=== PATIENT | female | born 1930 | race Caucasian/White ===

== ENCOUNTER → 2016-12-30 | Outpatient (CLI) | payer MEDICARE, OTHER ==
[2015-09-09 15:13] VITALS: BP 142/63
[~2016-12-30] MED LIST: CYAN10005 PO; HYDR-971 PO; LANS30CA17 PO
[2016-12-30 15:00] LABS: BASO # 0.1 x10^3/uL (0.0-0.2); BASO % 1 % (0-3); EOS % 3 % (0-3); HEMOGLOBIN 14.5 g/dL (12.0-15.5); LYMPH # 1.9 x10^3/uL (1.0-4.8); LYMPH % 25 % (24-48); MEAN CORPUSCULAR HEMOGLOBIN 32 pg (25-35); MEAN CORPUSCULAR HGB CONC 33 g/dL (31-37); MEAN CORPUSCULAR VOLUME 98 fL (79-100); MONO % 7 % (0-9); NEUT % 64 % (31-73); PLATELET COUNT 317 x10^3/uL (140-400); RED BLOOD COUNT 4.49 x10^6/uL (3.50-5.40); RED CELL DISTRIBUTION WIDTH 13.6 % (11.5-14.5); WHITE BLOOD COUNT 7.6 x10^3/uL (4.0-11.0)
[2016-12-30 15:03] LABS: CALCIUM 9.3 mg/dL (8.5-10.1); CREATININE 0.9 mg/dL (0.6-1.0); GFR 59.4
== END | disposition home or self-care (01) ==
LOC: SURGPAT 13:35
PROVIDERS: ATTEND Surgery
DX: Z01.812 Encounter for preprocedural laboratory examination (principal)
CPT/HCPCS: 36415; 80048; 83036; 85027

== ENCOUNTER 2017-01-05 08:18 | Inpatient (IN) | payer MEDICARE, OTHER ==
[2017-01-05] VITALS (10 sets, daily range): BP systolic 146–169; BP diastolic 51–75
[~2017-01-05] VITALS: Ht 152.4 cm; Wt 75.0 kg
[~2017-01-05 08:18] MED LIST changes: +BUPIVAC MPF-EPI 0.5%-1:200000 30 ML VIAL. ONE; +CEFAZOLIN 2GM PREMIX 50 ML IV ONE; +DEXAMETHASONE SOD PHOS 20 MG/5 ML VIAL. ONE; +FENTANYL PF 100 MCG/2 ML VIAL. IV PRN; +LIDOCAINE 1% 1 ML SYRINGE. ID PRN; +MIDAZOLAM HCL 2 MG/2 ML VIAL. ONE; +NEOSTIGMINE METHYLSULFATE 5 MG/5 ML SYRINGE. ONE; +ONDANSETRON PF 4 MG/2 ML VIAL. IV PRN; +ONDANSETRON PF 4 MG/2 ML VIAL. ONE; +PROCHLORPERAZINE 10 MG/2 ML VIAL. IV PRN; +PROPOFOL 20 ML IV ONE
[2017-01-05] MEDS ORDERED: FENTANYL PF 250 MCG/5 ML VIAL. ONE (08:19)
[2017-01-05] MEDS ORDERED: GLYCOPYRROLATE 1 MG/5 ML VIAL. ONE (08:19)
[2017-01-05] MEDS ORDERED: ROCURONIUM 100 MG/10 ML VIAL. ONE (08:20)
[2017-01-05] MEDS: IV RINGERS,LACTATED 1000ML 1,000 ML IV SCH ×2 (09:07→12:19)
[2017-01-05] MEDS ORDERED: PHENYLEPHRINE in 0.9% NACL PF 1 MG/10 ML DISP.SYRIN. IV ONE (09:48)
[2017-01-05] MEDS: FENTANYL PF 100 MCG/2 ML VIAL. IV PRN ×4 (11:08→12:47)
[2017-01-05] MEDS ORDERED: HYDROCODONE/APAP 5/325MG TABLET. PO PRN (11:15)
[2017-01-05] MEDS ORDERED: 0.9 % SODIUM CHLORIDE 10 ML DISP.SYRIN. IV PRN (11:15)
[2017-01-05] MEDS ORDERED: DIPHENHYDRAMINE HCL 25 MG CAPSULE PO PRN (11:15)
[2017-01-05] MEDS ORDERED: HYDROMORPHONE 2 MG/ML VIAL. IV PRN (11:15)
--- NOTE | 2017-01-05 11:18 | PDOC ---
BRIEF OPERATIVE NOTE Date: Jan 05, 2017 Pre-Op Diagnosis ventral incisional hernia Post-Op Diagnosis same Procedure Performed repair with mesh Surgeon Apollo ABDI Blood Loss 10cc IV Fluid 700cc Urine Output 50cc Specimens Obtained hernia sack Findings loculated hernia sack with reducible contents Complications none Additional Remarks # [id number] JUAN ANTONIO ALEJANDRA MD Jan 05, 2017 11:18
[2017-01-05] MEDS ORDERED: KETOROLAC 15 MG/ML VIAL. IV ONE (12:00)
--- NOTE | 2017-01-05 12:01 | OP ---
DATE OF SURGERY: 01/05/2017 PREOPERATIVE DIAGNOSIS: Ventral incisional hernia. POSTOPERATIVE DIAGNOSIS: Ventral incisional hernia. PROCEDURE: Repair with mesh. SURGEON: Mert Alejandra M.D. ANESTHESIA: General endotracheal. BLOOD LOSS: 10. INTRAVENOUS FLUIDS: 700. URINE OUTPUT: 50. INDICATIONS: The patient is an 86-year-old lady who last fall had a right hemicolectomy for cancer. She developed hernia and her incision is brought for repair. DESCRIPTION OF PROCEDURE: The patient brought to the operating suite, given a general endotracheal anesthetic and the abdomen prepped and draped in usual sterile fashion. The upper midline abdominal incision was excised and extended slightly ____ the umbilicus. Dissection carried down to the anterior sheath where the hernia sac was identified and mobilized circumferentially. It was carefully opened and the sac was excised. The remaining defect was repaired with a medium oval Ventrio mesh after a correct sponge count had been obtained. The mesh was tacked at the 4 quadrants with 0 PDS. It was then tacked around the periphery with the ____. The attenuated fascia was closed over the mesh. A 19-Italian round Jonathan drain left in the subcutaneous space for postoperative drainage, secured to the skin with a silk stitch. When a second sponge count was correct, the wound was closed by placing some 3-0 Vicryl in subcutaneous tissue and a subcuticular 4-0 Monocryl with Steri-Strips for the skin. Sterile dressing applied, abdominal binder placed. The patient awakened from her anesthetic and taken to the recovery room in satisfactory condition. MERT ALEJANDRA MD DR: ROSA/ana JOB#: [id number] / [id number]
[2017-01-05] MEDS ORDERED: MORPHINE SULFATE 2 MG/ML DISP.SYRIN. ONE (12:15)
[2017-01-05] MEDS: PANTOPRAZOLE 40 MG TABLET. PO SCH (13:00)
[2017-01-05] MEDS: CYANOCOBALAMIN (VITAMIN B-12) 1,000 MCG TABLET. PO SCH (13:00)
[2017-01-05] MEDS: POTASSIUM CL 20MEQ-0.45% NACL 1,000 ML IV SCH (15:00)
--- NOTE | 2017-01-05 15:12 | PDOC2 ---
CONSULT Date of Consult Date of Consult DATE: 01/05/17 TIME: 15:12 Reason for Consult Reason for Consult: diabetes management Identification/Chief Complaint Chief Complaint Ventral incisional hernia History of Present Illness Reason for Visit: A 86 Female with HTN, and recent diagnosis of DM admitted to the hospital for Ventral incisional hernia repair by Dr Bustillos, IPC is consulted for medical management. Pt was recently diagnosed with DM. Per pt her HBA1C 6.9. Today, she denies any complaints, she is groggy, c/o mild pain, tolerable. no acute issues. Past Medical History Past Medical History HTN/DM Current Problem List Problem List Problems Medical Problems: (1) Ventral incisional hernia Status: Acute Current Medications Current Medications Current Medications Ondansetron HCl (Zofran) 4 mg PRN Q6HRS PRN IV Nausea Last administered on 01/05 15:00; Start 01/05/17 at 07:00; Stop 01/06/17 at 06:59 Fentanyl Citrate (Fentanyl 2ml Vial) 25 mcg PRN Q5MIN PRN IV MILD PAIN; Start 01/05/17 at 07:00; Stop 01/06/17 at 06:59 Fentanyl Citrate 50 mcg 50 mcg PRN Q5MIN PRN IV MODERATE PAIN Last administered on 01/05/17 12:47; Start 01/05/17 at 07:00; Stop 01/06/17 at 06:59 Lactated Ringer's (Iv Lactated Ringers) 1,000 ml @ 0 mls/hr Q0M IV Last administered on 01/05/17 12:19; Start 01/05/17 at 07:00; Stop 01/05/17 at 18:59 Lidocaine HCl 2 ml 1X PRN PRN ID IV START; Start 01/05/17 at 07:00; Stop at 06:59 Prochlorperazine Edisylate 5 mg 5 mg PACU PRN PRN IV NAUSEA; Start 01/05/17 at 07:00; Stop 01/06/17 at 06:59 Cefazolin Sodium/ Dextrose (Ancef 2gm Premix) 50 ml @ 100 mls/hr 1X ONCE IV Last administered on 01/05/17 09:42; Start 01/05/17 at 06:00; Stop 01/05/17 at 06:29; Status DC Bupivacaine HCl/ Epinephrine Bitart (Sensorcain-Mpf Epi 0.5%-1:870101) 30 ml STK -MED ONCE .ROUTE Last administered on 01/05/17 09:52; Start 01/05/17 at 07:23 ; Stop 01/05/17 at 07:24; Status DC Dexamethasone Sodium Phosphate (Decadron) 20 mg STK-MED ONCE .ROUTE ; Start at 08:18; Stop 01/05/17 at 08:19; Status DC Ondansetron HCl 4 mg 4 mg STK-MED ONCE .ROUTE ; Start 01/05/17 at 08:18; Stop at 08:19; Status DC Propofol (Diprivan) 20 ml @ As Directed STK-MED ONCE IV ; Start 01/05/17 at 08: 18; Stop 01/05/17 at 08:19; Status DC Neostigmine Methylsulfate 5 mg STK-MED ONCE .ROUTE ; Start 01/05/17 at 08:18; Stop 01/05/17 at 08:19; Status DC Midazolam HCl (Versed) 2 mg STK-MED ONCE .ROUTE ; Start 01/05/17 at 08:18; Stop 01/05/17 at 08:19; Status DC Fentanyl Citrate (Fentanyl 5ml Vial) 250 mcg STK-MED ONCE .ROUTE ; Start at 08:19; Stop 01/05/17 at 08:20; Status DC Glycopyrrolate (Robinul) 1 mg STK-MED ONCE .ROUTE ; Start 01/05/17 at 08:19; Stop 01/05/17 at 08:20; Status DC Rocuronium [place] (Zemuron) 100 mg STK-MED ONCE .ROUTE ; Start 01/05/17 at 08: 20; Stop 01/05/17 at 08:21; Status DC Phenylephrine HCl 1 mg STK-MED ONCE IV ; Start 01/05/17 at 09:48; Stop 01/05/17 at 09:49; Status DC Ketorolac Tromethamine (Toradol) 15 mg 1X ONCE IV Last administered on 11:09; Start 01/05/17 at 12:00; Stop 01/05/17 at 12:01; Status DC Enoxaparin Sodium (Lovenox 40mg Syringe) 40 mg Q24H SQ ; Start 01/05/17 at 21:00 Sodium Chloride 3 ml 3 ml QSHIFT PRN IV AFTER MEDS AND BLOOD DRAWS; Start 01/05 at 11:15 Potassium Chloride/Sodium Chloride (KCl 20 Meq-0.45% Nacl) 1,000 ml @ 80 mls/ hr [id number] IV Last administered on 01/05/17t 15:00; Start 01/05/17 at 12:00 Acetaminophen/ Hydrocodone Bitart (Lortab 5/325) 1 tab PRN Q4HRS PRN PO MILD PAIN; Start 01/05/17 at 11:15 Acetaminophen/ Hydrocodone Bitart (Lortab 5/325) 2 tab PRN Q4HRS PRN PO MODERATE PAIN, SEVERE PAIN; Start 01/05/17 at 11:15 Hydromorphone HCl (Dilaudid) 0.5 mg PRN Q3HRS PRN IV PAIN; Start 01/05/17 at 11 :15 Docusate Sodium (Colace) 100 mg BID PO ; Start 01/05/17 at 21:00; Stop 01/05/17 at 21:00; Status DC Ondansetron HCl (Zofran) 4 mg PRN Q6HRS PRN IV NAUESA, 1ST CHOICE; Start at 11:15 Diphenhydramine HCl (Benadryl) 25 mg PRN Q6HRS PRN PO ITCHING; Start 01/05/17 at 11:15 Cyanocobalamin (Vitamin B-12) 1,000 mcg DAILY PO ; Start 01/05/17 at 13:00 Pantoprazole Sodium (Protonix) 40 mg DAILYAC PO ; Start 01/05/17 at 13:00 Morphine Sulfate 2 mg STK-MED ONCE .ROUTE ; Start 01/05/17 at 12:15; Stop at 12:16; Status DC Docusate Sodium (Colace) 100 mg BID PO ; Start 01/05/17 at 21:00 Active Scripts Active Reported Vitamin B-12 (Cyanocobalamin (Vitamin B-12)) 1,000 Mcg Tablet 1 Tab PO DAILY Prevacid (Lansoprazole) 30 Mg Capsule.dr 1 Cap PO DAILY Allergies Allergies: Coded Allergies: shellfish derived (Verified Allergy, Intermediate, NAUSEA AND VOMITING SHRIMP, 01/05/17) codeine (Verified Adverse Reaction, Intermediate, Nausea, 01/05/17) ROS General: No: Appetite, Chills, Fatigue, Malaise, Night Sweats, Other Respiratory: No: Cough, Hemoptysis, Orthopnea, Other, Pleuritic Pain, SOB with excertion, Shortness of breath, Sputum Changes, Stridor, Tachypnea, Wheezing Cardiovascular: No Chest Pain, No Edema, No Lt Headedness, No Orthopnea, No Other, No Palpitations, No Paroxysmal Noc. Dyspnea Gastrointestinal: Yes Abdominal Pain Neurological: No Behavorial Changes, No Bowel/Bladder ControlChng, No Confusion , No Dizziness, No Gait Disturbance, No Headaches, No Impaired Coord/balance, No Memory Loss, No Numbness/Tingling, No Other, No Seizures, No Speech Problems , No Tremors, No Visual Changes, No Weakness Skin: No Acne, No Dry Skin, No Eczema, No Hair Changes, No Lumps, No Mole Changes, No Mottling, No Nail Changes, No Other, No Pruritus, No Rash, No Skin Lesion Changes Physical Exam General: Alert, Oriented X3 HEENT: Atraumatic Lungs: Clear to auscultation Heart: Regular rate, Normal S1, Normal S2 Abdomen: Normal bowel sounds, Soft Extremities: No clubbing Skin: No rashes Neuro: Normal speech Vitals VITALS Vital Signs Date Time Temp Pulse Resp B/P Pulse Ox O2 Delivery O2 Flow Rate FiO2 01/05/17 13:19 Nasal Cannula 2.0 01/05/17 13:05 97.4 74 18 160/62 95 97.4 Labs Labs Laboratory Tests Test 01/05/17 09:05 01/05/17 13:16 Glucose (Fingerstick) 120mg/dL (70-99) 187mg/dL (70-99) Laboratory Tests Test 01/05/17 09:05 01/05/17 13:16 Glucose (Fingerstick) 120mg/dL (70-99) 187mg/dL (70-99) Assessment/Plan Assessment/Plan Ventral incisional hernia DM ? HTN Plan SSI Pain control PRN hydralazine if SBP > 170 DVT prophylaxis supportive care. TERRIE HIDALGO MD Jan 05, 2017 15:12
[2017-01-05] MEDS ORDERED: ALBUTEROL SULFATE 2.5 MG/3 ML NEBU. NEB PRN (16:15)
[2017-01-05] MEDS ORDERED: ONDANSETRON PF 4 MG/2 ML VIAL. IV PRN (16:15)
[2017-01-05] MEDS ORDERED: hydrALAZINE 20 MG/ML VIAL. IVP PRN (16:15)
[2017-01-05] MEDS ORDERED: DEXTROSE 50% 25 GM / 50ML DISP.SYRIN. IV PRN (16:15)
[2017-01-05] MEDS: INSULIN ASPART 300 UNITS/3 ML INSULN.PEN SQ SCH (17:00)
[2017-01-05] MEDS ORDERED: DOCUSATE SODIUM 100 MG CAPSULE PO SCH (21:00)
[2017-01-05] MEDS: DOCUSATE SODIUM 100 MG CAPSULE. PO SCH (21:05)
[2017-01-05] MEDS: ENOXAPARIN 40 MG/0.4 ML SYRINGE. SQ SCH (21:07)
[2017-01-06] MEDS: POTASSIUM CL 20MEQ-0.45% NACL 1,000 ML IV SCH ×2 (01:27→15:52)
[2017-01-06 02:56] VITALS: BP 143/69
[2017-01-06 04:59] LABS: BASO # 0.1 x10^3/uL (0.0-0.2); BASO % 1 % (0-3); EOS % 0 % (0-3); HEMATOCRIT 39.8 % (36.0-47.0); HEMOGLOBIN 13.3 g/dL (12.0-15.5); LYMPH # 1.4 x10^3/uL (1.0-4.8); LYMPH % 11 % (24-48); MEAN CORPUSCULAR HEMOGLOBIN 32 pg (25-35); MEAN CORPUSCULAR HGB CONC 34 g/dL (31-37); MEAN CORPUSCULAR VOLUME 96 fL (79-100); MONO % 7 % (0-9); NEUT % 81 % (31-73); PLATELET COUNT 285 x10^3/uL (140-400); RED BLOOD COUNT 4.15 x10^6/uL (3.50-5.40); RED CELL DISTRIBUTION WIDTH 13.5 % (11.5-14.5)
[2017-01-06 05:13] LABS: CALCIUM 8.6 mg/dL (8.5-10.1); CREATININE 0.7 mg/dL (0.6-1.0); GFR 79.3; POTASSIUM 4.1 mmol/L (3.5-5.1)
--- NOTE | 2017-01-06 06:33 | ACF ---
Admission Forms Criteria ABDOMINAL PAIN Clinical Indications for Admission to Inpatient Care (Place 'X' for any and all applicable criteria): Admission is indicated for ANY ONE of the following(1)(2)(3)(4)(5): [ ]I. Inpatient admission required rather than observation care (Also use Abdominal Pain: Observation Care, as appropriate) because of ANY ONE of the following: [ ]a) Severe pain requiring acute inpatient management [ ]b) Identification of etiology/finding that requires inpatient care (eg, aortic dissection, free air) [ ]c) Absent bowel sounds with complete ileus(6) [ ]d) Suspected toxic megacolon [ ]e) Severe electrolyte abnormalities requiring inpatient care [ ]f) High fever or infection requiring inpatient admission as indicated by ANY ONE of following(7)(8): [ ] i) Appropriate outpatient or observational care antimicrobial treatment unavailable, not effective, or not feasible [ ] ii) Documented bacteremia [ ] iii) Temperature > 104.9 degrees F (oral) [ ] iv) T >103.1 F (oral) or < 96.8 F(rectal) that does not respond to all emergency treatment measures [ ]g) Signs of intestinal obstruction [B] [ ]h) Hemodynamic instability [ ]i) IV fluid to replace significant ongoing losses (greater than 3 L/m2 per day) (12)(13) [ ]j) Percutaneous or open drainage (eg, abscess, biliary tract ) procedures [ ]k) Parenteral nutrition regimen that must be implemented on inpatient basis [ ]l) Other condition,treatment or monitoring requiring inpatient admission. [ ]II. Peritoneal signs present [X]III. Surgery needed that cannot be performed on an ambulatory basis. [ ]IV. Evaluation requires patient to not eat or drink for extended period ( eg, more than 24 hours). [ ]V. Contraindications and/or Inappropriate clinical situations for Observational Care in patients with abdominal pain, when ANY ONE of the following is required: [ ]a) Thorough evaluation is required to prevent catastrophic events due to delays in diagnosing (e.g.Mesenteric ischemia) 1,3 [ ]b) Patient with severe pathology or with chronic symptoms unlikely to improve in the ED stay (3) [ ]. General contraindications and/or Inappropriate clinical situations for Observational Care in patients with abdominal pain, when ANY ONE of the following is required: [ ]a) Prediction of prolongation of LOS based on ANY ONE of the following may be considered as a contraindication for observational care 2, 3, 4, 5, 6, 7, 8, 9, 10, 11 [ ]i) Age > 65 yrs. [ ]ii) Patient arriving by ambulance [ ]iii) Patient with high acuity [ ]iv) Patient requiring vital sign monitoring [ ]v) Patient on IV medication [ ]b) Systolic blood pressures 180mmHg 3,12 [ ]c) Patient with altered mental status including delirium and other alteration of consciousness, (3) [ ]d) Patient whose discharge disposition will be to a long term home or rehabilitation home should not be managed in Emergency Department Observation Unit. CMS rule requires 3 days hospital stay before such placement.3,13 [ ]e) Patient with failure to thrive due to broad array of etiologies 3,16,17 [ ]f) Inability to ambulate 3,14 Extended stay beyond goal length of stay may be needed for(2)(3): [ ]a) Persistent abdominal pain with suspected intra-abdominal process [ ]b) Diagnosed condition requiring continued stay (e.g., pancreatitis, complicated diverticulitis) [ ]c) Surgery (e.g., colectomy) The original [facility] content created by [employer] has been revised. The portions of the content which have been revised are identified through the use of italic text or in bold, and [facility] has neither reviewed nor approved the modified material.All other unmodified content is copyright [facility]. Please see references footnoted in the original [facility] [employer] edition 2015 Admission Criteria Met?: Yes SEAN REINA Jan 06, 2017 06:33
[2017-01-06 07:00] VITALS: BP 144/68
--- NOTE | 2017-01-06 07:34 | PDOC ---
PROGRESS NOTES Chief Complaint Chief Complaint Ventral incisional hernia repair, POD DM HTN not controlled. Plan Metoprolol SSI Pain control incentive spirometry prn labs reviewed, Vitals Vitals Vital Signs Date Time Temp Pulse Resp B/P Pulse Ox O2 Delivery O2 Flow Rate FiO2 01/06/17 02:56 98.1 84 143/69 97 Room Air 2.0 98.1 01/05/17 17:02 18 Physical Exam General: Alert, Oriented X3 Heart: Regular rate, Normal S1, Normal S2 Lungs: Clear Abdomen: Normal bowel sounds, Soft Extremities: No clubbing Skin: No rashes Labs LABS Laboratory Tests Test 01/05/17 09:05 01/05/17 13:16 01/05/17 16:43 01/05/17 21:05 Glucose (Fingerstick) 120mg/dL (70-99) 187mg/dL (70-99) 163mg/dL (70-99) 177mg/dL (70-99) Test 01/06/17 04:40 White Blood Count 13.0x10^3/uL (4.0-11.0) Red Blood Count 4.15x10^6/uL (3.50-5.40) Hemoglobin 13.3g/dL (12.0-15.5) Hematocrit 39.8% (36.0-47.0) Mean Corpuscular Volume 96fL (79-100) Mean Corpuscular Hemoglobin 32pg (25-35) Mean Corpuscular Hemoglobin Concent 34g/dL (31-37) Red Cell Distribution Width 13.5% (11.5-14.5) Platelet Count 285x10^3/uL (140-400) Neutrophils (%) (Auto) 81% (31-73) Lymphocytes (%) (Auto) 11% (24-48) Monocytes (%) (Auto) 7% (0-9) Eosinophils (%) (Auto) 0% (0-3) Basophils (%) (Auto) 1% (0-3) Neutrophils # (Auto) 10.6x10^3uL (1.8-7.7) Lymphocytes # (Auto) 1.4x10^3/uL (1.0-4.8) Monocytes # (Auto) 1.0x10^3/uL (0.0-1.1) Eosinophils # (Auto) 0.0x10^3/uL (0.0-0.7) Basophils # (Auto) 0.1x10^3/uL (0.0-0.2) Sodium Level 134mmol/L (136-145) Potassium Level 4.1mmol/L (3.5-5.1) Chloride Level 102mmol/L (98-107) Carbon Dioxide Level 22mmol/L (21-32) Anion Gap 10 (6-14) Blood Urea Nitrogen 10mg/dL (7-20) Creatinine 0.7mg/dL (0.6-1.0) Estimated GFR (Cockcroft-Gault) 79.3 Glucose Level 127mg/dL (70-99) Calcium Level 8.6mg/dL (8.5-10.1) Assessment and Plan Assessmemt and Plan Problems Medical Problems: (1) Ventral incisional hernia Status: Acute Problems: Comment Review of Relevant I have reviewed the following items kelly (where applicable) has been applied. Labs Laboratory Tests Test 01/05/17 09:05 01/05/17 13:16 01/05/17 16:43 01/05/17 21:05 Glucose (Fingerstick) 120mg/dL (70-99) 187mg/dL (70-99) 163mg/dL (70-99) 177mg/dL (70-99) Test 01/06/17 04:40 White Blood Count 13.0x10^3/uL (4.0-11.0) Red Blood Count 4.15x10^6/uL (3.50-5.40) Hemoglobin 13.3g/dL (12.0-15.5) Hematocrit 39.8% (36.0-47.0) Mean Corpuscular Volume 96fL (79-100) Mean Corpuscular Hemoglobin 32pg (25-35) Mean Corpuscular Hemoglobin Concent 34g/dL (31-37) Red Cell Distribution Width 13.5% (11.5-14.5) Platelet Count 285x10^3/uL (140-400) Neutrophils (%) (Auto) 81% (31-73) Lymphocytes (%) (Auto) 11% (24-48) Monocytes (%) (Auto) 7% (0-9) Eosinophils (%) (Auto) 0% (0-3) Basophils (%) (Auto) 1% (0-3) Neutrophils # (Auto) 10.6x10^3uL (1.8-7.7) Lymphocytes # (Auto) 1.4x10^3/uL (1.0-4.8) Monocytes # (Auto) 1.0x10^3/uL (0.0-1.1) Eosinophils # (Auto) 0.0x10^3/uL (0.0-0.7) Basophils # (Auto) 0.1x10^3/uL (0.0-0.2) Sodium Level 134mmol/L (136-145) Potassium Level 4.1mmol/L (3.5-5.1) Chloride Level 102mmol/L (98-107) Carbon Dioxide Level 22mmol/L (21-32) Anion Gap 10 (6-14) Blood Urea Nitrogen 10mg/dL (7-20) Creatinine 0.7mg/dL (0.6-1.0) Estimated GFR (Cockcroft-Gault) 79.3 Glucose Level 127mg/dL (70-99) Calcium Level 8.6mg/dL (8.5-10.1) Laboratory Tests Test 01/05/17 09:05 01/05/17 13:16 01/05/17 16:43 01/05/17 21:05 Glucose (Fingerstick) 120mg/dL (70-99) 187mg/dL (70-99) 163mg/dL (70-99) 177mg/dL (70-99) Test 01/06/17 04:40 White Blood Count 13.0x10^3/uL (4.0-11.0) Red Blood Count 4.15x10^6/uL (3.50-5.40) Hemoglobin 13.3g/dL (12.0-15.5) Hematocrit 39.8% (36.0-47.0) Mean Corpuscular Volume 96fL (79-100) Mean Corpuscular Hemoglobin 32pg (25-35) Mean Corpuscular Hemoglobin Concent 34g/dL (31-37) Red Cell Distribution Width 13.5% (11.5-14.5) Platelet Count 285x10^3/uL (140-400) Neutrophils (%) (Auto) 81% (31-73) Lymphocytes (%) (Auto) 11% (24-48) Monocytes (%) (Auto) 7% (0-9) Eosinophils (%) (Auto) 0% (0-3) Basophils (%) (Auto) 1% (0-3) Neutrophils # (Auto) 10.6x10^3uL (1.8-7.7) Lymphocytes # (Auto) 1.4x10^3/uL (1.0-4.8) Monocytes # (Auto) 1.0x10^3/uL (0.0-1.1) Eosinophils # (Auto) 0.0x10^3/uL (0.0-0.7) Basophils # (Auto) 0.1x10^3/uL (0.0-0.2) Sodium Level 134mmol/L (136-145) Potassium Level 4.1mmol/L (3.5-5.1) Chloride Level 102mmol/L (98-107) Carbon Dioxide Level 22mmol/L (21-32) Anion Gap 10 (6-14) Blood Urea Nitrogen 10mg/dL (7-20) Creatinine 0.7mg/dL (0.6-1.0) Estimated GFR (Cockcroft-Gault) 79.3 Glucose Level 127mg/dL (70-99) Calcium Level 8.6mg/dL (8.5-10.1) Medications Current Medications Ondansetron HCl (Zofran) 4 mg PRN Q6HRS PRN IV Nausea Last administered on 01/05 15:00; Start 01/05/17 at 07:00; Stop 01/06/17 at 06:59; Status DC Fentanyl Citrate (Fentanyl 2ml Vial) 25 mcg PRN Q5MIN PRN IV MILD PAIN Last administered on 01/05/17 17:02; Start 01/05/17 at 07:00; Stop 01/06/17 at 06:59 ; Status DC Fentanyl Citrate 50 mcg 50 mcg PRN Q5MIN PRN IV MODERATE PAIN Last administered on 01/05/17 12:47; Start 01/05/17 at 07:00; Stop 01/06/17 at 06:59 ; Status DC Lactated Ringer's (Iv Lactated Ringers) 1,000 ml @ 0 mls/hr Q0M IV Last administered on 01/05/17 12:19; Start 01/05/17 at 07:00; Stop 01/05/17 at 18:59 ; Status DC Lidocaine HCl 2 ml 1X PRN PRN ID IV START; Start 01/05/17 at 07:00; Stop at 06:59; Status DC Prochlorperazine Edisylate 5 mg 5 mg PACU PRN PRN IV NAUSEA; Start 01/05/17 at 07:00; Stop 01/06/17 at 06:59; Status DC Cefazolin Sodium/ Dextrose (Ancef 2gm Premix) 50 ml @ 100 mls/hr 1X ONCE IV Last administered on 01/05/17 09:42; Start 01/05/17 at 06:00; Stop 01/05/17 at 06:29; Status DC Bupivacaine HCl/ Epinephrine Bitart (Sensorcain-Mpf Epi 0.5%-1:185975) 30 ml STK -MED ONCE .ROUTE Last administered on 01/05/17 09:52; Start 01/05/17 at 07:23 ; Stop 01/05/17 at 07:24; Status DC Dexamethasone Sodium Phosphate (Decadron) 20 mg STK-MED ONCE .ROUTE ; Start at 08:18; Stop 01/05/17 at 08:19; Status DC Ondansetron HCl 4 mg 4 mg STK-MED ONCE .ROUTE ; Start 01/05/17 at 08:18; Stop at 08:19; Status DC Propofol (Diprivan) 20 ml @ As Directed STK-MED ONCE IV ; Start 01/05/17 at 08: 18; Stop 01/05/17 at 08:19; Status DC Neostigmine Methylsulfate 5 mg STK-MED ONCE .ROUTE ; Start 01/05/17 at 08:18; Stop 01/05/17 at 08:19; Status DC Midazolam HCl (Versed) 2 mg STK-MED ONCE .ROUTE ; Start 01/05/17 at 08:18; Stop 01/05/17 at 08:19; Status DC Fentanyl Citrate (Fentanyl 5ml Vial) 250 mcg STK-MED ONCE .ROUTE ; Start at 08:19; Stop 01/05/17 at 08:20; Status DC Glycopyrrolate (Robinul) 1 mg STK-MED ONCE .ROUTE ; Start 01/05/17 at 08:19; Stop 01/05/17 at 08:20; Status DC Rocuronium [place] (Zemuron) 100 mg STK-MED ONCE .ROUTE ; Start 01/05/17 at 08: 20; Stop 01/05/17 at 08:21; Status DC Phenylephrine HCl 1 mg STK-MED ONCE IV ; Start 01/05/17 at 09:48; Stop 01/05/17 at 09:49; Status DC Ketorolac Tromethamine (Toradol) 15 mg 1X ONCE IV Last administered on 11:09; Start 01/05/17 at 12:00; Stop 01/05/17 at 12:01; Status DC Enoxaparin Sodium (Lovenox 40mg Syringe) 40 mg Q24H SQ Last administered on 21:07; Start 01/05/17 at 21:00 Sodium Chloride 3 ml 3 ml QSHIFT PRN IV AFTER MEDS AND BLOOD DRAWS; Start 01/05 at 11:15 Potassium Chloride/Sodium Chloride (KCl 20 Meq-0.45% Nacl) 1,000 ml @ 80 mls/ hr [id number] IV Last administered on 01/06/17 01:27; Start 01/05/17 at 12:00 Acetaminophen/ Hydrocodone Bitart (Lortab 5/325) 1 tab PRN Q4HRS PRN PO MILD PAIN; Start 01/05/17 at 11:15 Acetaminophen/ Hydrocodone Bitart (Lortab 5/325) 2 tab PRN Q4HRS PRN PO MODERATE PAIN, SEVERE PAIN; Start 01/05/17 at 11:15 Hydromorphone HCl (Dilaudid) 0.5 mg PRN Q3HRS PRN IV PAIN; Start 01/05/17 at 11 :15 Docusate Sodium (Colace) 100 mg BID PO ; Start 01/05/17 at 21:00; Stop 01/05/17 at 21:00; Status DC Ondansetron HCl (Zofran) 4 mg PRN Q6HRS PRN IV NAUESA, 1ST CHOICE; Start at 11:15 Diphenhydramine HCl (Benadryl) 25 mg PRN Q6HRS PRN PO ITCHING; Start 01/05/17 at 11:15 Cyanocobalamin (Vitamin B-12) 1,000 mcg DAILY PO ; Start 01/05/17 at 13:00 Pantoprazole Sodium (Protonix) 40 mg DAILYAC PO ; Start 01/05/17 at 13:00 Morphine Sulfate 2 mg STK-MED ONCE .ROUTE ; Start 01/05/17 at 12:15; Stop at 12:16; Status DC Docusate Sodium (Colace) 100 mg BID PO Last administered on 01/05/17t 21:05; Start 01/05/17 at 21:00 Acetaminophen (Tylenol) 325 mg PRN Q6HRS PRN PO MILD PAIN / TEMP; Start at 16:15 Hydralazine HCl (Apresoline) 10 mg PRN Q4HRS PRN IVP ELEVATED BP, SEE COMMENTS ; Start 01/05/17 at 16:15 Ondansetron HCl (Zofran) 4 mg PRN Q8HRS PRN IV NAUSEA/VOMITING; Start 01/05/17 at 16:15 Albuterol Sulfate (Ventolin Neb Soln) 2.5 mg PRN Q4HRS PRN NEB SHORTNESS OF BREATH; Start 01/05/17 at 16:15 Insulin Aspart (Novolog) 0-7 UNITS TIDWMEALS SQ ; Start 01/05/17 at 17:00 Dextrose 12.5 gm PRN Q15MIN PRN IV SEE COMMENTS; Start 01/05/17 at 16:15 Active Scripts Active Reported Vitamin B-12 (Cyanocobalamin (Vitamin B-12)) 1,000 Mcg Tablet 1 Tab PO DAILY Prevacid (Lansoprazole) 30 Mg Capsule. 1 Cap PO DAILY Vitals/I & O Vital Sign - Last 24 Hours 01/05/17 01/05/17 01/05/17 01/05/17 08:59 10:54 11:08 11:10 Temp 98.7 97.8 98.7 97.8 Pulse 95 74 68 Resp 18 20 20 20 B/P 187/81 167/76 172/80 Pulse Ox 97 100 99 100 O2 Delivery Room Air Simple Mask Simple Mask Nasal Cannula O2 Flow Rate 10 10.0 2 01/05/17 01/05/17 01/05/17 01/05/17 11:10 11:19 11:40 11:55 Pulse 78 78 Resp 20 20 20 B/P 167/62 155/62 Pulse Ox 99 95 96 O2 Delivery Nasal Cannula Simple Mask Nasal Cannula Nasal Cannula O2 Flow Rate 2 10.0 2 2 01/05/17 01/05/17 01/05/17 01/05/17 12:10 12:25 12:27 12:43 Temp 97.0 97.0 Pulse 73 87 Resp 20 20 18 B/P 159/59 159/67 Pulse Ox 94 96 99 O2 Delivery Nasal Cannula Nasal Cannula Simple Mask Nasal Cannula O2 Flow Rate 2 2 2.0 2.0 01/05/17 01/05/17 01/05/17 01/05/17 12:43 12:47 13:05 13:05 Temp 97.0 97.4 97.4 97.0 97.4 97.4 Pulse 78 74 74 Resp 20 20 18 18 B/P 151/63 160/62 160/62 Pulse Ox 95 95 95 95 O2 Delivery Nasal Cannula Nasal Cannula Room Air Nasal Cannula O2 Flow Rate 2 2.0 2.0 2.0 01/05/17 01/05/17 01/05/17 01/05/17 13:19 13:20 13:35 13:50 Pulse 77 74 77 B/P 155/56 147/57 149/51 Pulse Ox 93 95 94 O2 Delivery Nasal Cannula Room Air Room Air Room Air O2 Flow Rate 2.0 2.0 2.0 2.0 01/05/17 01/05/17 01/05/17 01/05/17 14:05 14:35 15:05 16:05 Pulse 75 75 73 90 B/P 146/57 152/53 152/66 166/67 Pulse Ox 95 97 96 97 O2 Delivery Room Air Room Air Room Air Room Air O2 Flow Rate 2.0 2.0 2.0 2.0 01/05/17 01/05/17 01/05/17 01/05/17 17:02 17:46 19:52 20:00 Pulse 93 Resp 18 B/P 169/68 Pulse Ox 96 97 O2 Delivery Nasal Cannula Room Air Room Air O2 Flow Rate 2.0 2.0 01/05/17 01/05/17 01/06/17 21:49 22:54 02:56 Temp 97.7 98.1 97.7 98.1 Pulse 94 84 B/P 164/75 143/69 Pulse Ox 91 97 97 O2 Delivery Room Air Room Air O2 Flow Rate 2.0 2.0 Intake and Output 01/05/17 01/05/17 01/06/17 15:00 23:00 07:00 Intake Total 1155 ml 2120 ml Output Total 170 ml 0 ml 1350 ml Balance 985 ml 0 ml 770 ml TERRIE HIDALGO MD Jan 06, 2017 07:34
[2017-01-06] MEDS: INSULIN ASPART 300 UNITS/3 ML INSULN.PEN SQ SCH ×3 (08:00→17:00)
[2017-01-06] MEDS: PANTOPRAZOLE 40 MG TABLET. PO SCH (09:41)
[2017-01-06] MEDS: CYANOCOBALAMIN (VITAMIN B-12) 1,000 MCG TABLET. PO SCH (09:42)
[2017-01-06] MEDS: DOCUSATE SODIUM 100 MG CAPSULE. PO SCH ×2 (09:42→21:39)
[2017-01-06] MEDS: METOPROLOL TART IMMED RELEASE 25 MG TABLET PO SCH ×2 (09:43→21:40)
[2017-01-06] MEDS: ACETAMINOPHEN 325 MG TABLET. PO PRN ×3 (09:43→21:39)
--- NOTE | 2017-01-06 10:52 | PDOC ---
SURGICAL PROGRESS NOTE Subjective incisional pain pain meds make her nauseated hasn't been OOB yet Vital Signs Vital Signs Date Time Temp Pulse Resp B/P Pulse Ox O2 Delivery O2 Flow Rate FiO2 01/06/17 09:43 83 144/68 01/06/17 07:00 97.9 16 92 Room Air 97.9 01/06/17 02:56 2.0 I&O Intake and Output 01/06/17 07:00 Intake Total 3275 ml Output Total 1520 ml Balance 1755 ml Intake Oral 325 ml IV Total 1850 ml Other 1100 ml Output Urine Total 1470 ml Drainage Total 40 ml Estimated Blood Loss 10 ml PATIENT HAS A SAUNDERS: Yes General: Alert, Oriented X3, No acute distress Abdomen: Soft, Other (binder in place, LINDEN with small amount of serosanguineous output) Labs Laboratory Tests Test 01/05/17 09:05 01/05/17 13:16 01/05/17 16:43 01/05/17 21:05 Glucose (Fingerstick) 120mg/dL (70-99) 187mg/dL (70-99) 163mg/dL (70-99) 177mg/dL (70-99) Test 01/06/17 04:40 01/06/17 07:37 White Blood Count 13.0x10^3/uL (4.0-11.0) Red Blood Count 4.15x10^6/uL (3.50-5.40) Hemoglobin 13.3g/dL (12.0-15.5) Hematocrit 39.8% (36.0-47.0) Mean Corpuscular Volume 96fL (79-100) Mean Corpuscular Hemoglobin 32pg (25-35) Mean Corpuscular Hemoglobin Concent 34g/dL (31-37) Red Cell Distribution Width 13.5% (11.5-14.5) Platelet Count 285x10^3/uL (140-400) Neutrophils (%) (Auto) 81% (31-73) Lymphocytes (%) (Auto) 11% (24-48) Monocytes (%) (Auto) 7% (0-9) Eosinophils (%) (Auto) 0% (0-3) Basophils (%) (Auto) 1% (0-3) Neutrophils # (Auto) 10.6x10^3uL (1.8-7.7) Lymphocytes # (Auto) 1.4x10^3/uL (1.0-4.8) Monocytes # (Auto) 1.0x10^3/uL (0.0-1.1) Eosinophils # (Auto) 0.0x10^3/uL (0.0-0.7) Basophils # (Auto) 0.1x10^3/uL (0.0-0.2) Sodium Level 134mmol/L (136-145) Potassium Level 4.1mmol/L (3.5-5.1) Chloride Level 102mmol/L (98-107) Carbon Dioxide Level 22mmol/L (21-32) Anion Gap 10 (6-14) Blood Urea Nitrogen 10mg/dL (7-20) Creatinine 0.7mg/dL (0.6-1.0) Estimated GFR (Cockcroft-Gault) 79.3 Glucose Level 127mg/dL (70-99) Calcium Level 8.6mg/dL (8.5-10.1) Glucose (Fingerstick) 121mg/dL (70-99) Laboratory Tests Test 01/05/17 13:16 01/05/17 16:43 01/05/17 21:05 01/06/17 04:40 Glucose (Fingerstick) 187mg/dL (70-99) 163mg/dL (70-99) 177mg/dL (70-99) White Blood Count 13.0x10^3/uL (4.0-11.0) Red Blood Count 4.15x10^6/uL (3.50-5.40) Hemoglobin 13.3g/dL (12.0-15.5) Hematocrit 39.8% (36.0-47.0) Mean Corpuscular Volume 96fL (79-100) Mean Corpuscular Hemoglobin 32pg (25-35) Mean Corpuscular Hemoglobin Concent 34g/dL (31-37) Red Cell Distribution Width 13.5% (11.5-14.5) Platelet Count 285x10^3/uL (140-400) Neutrophils (%) (Auto) 81% (31-73) Lymphocytes (%) (Auto) 11% (24-48) Monocytes (%) (Auto) 7% (0-9) Eosinophils (%) (Auto) 0% (0-3) Basophils (%) (Auto) 1% (0-3) Neutrophils # (Auto) 10.6x10^3uL (1.8-7.7) Lymphocytes # (Auto) 1.4x10^3/uL (1.0-4.8) Monocytes # (Auto) 1.0x10^3/uL (0.0-1.1) Eosinophils # (Auto) 0.0x10^3/uL (0.0-0.7) Basophils # (Auto) 0.1x10^3/uL (0.0-0.2) Sodium Level 134mmol/L (136-145) Potassium Level 4.1mmol/L (3.5-5.1) Chloride Level 102mmol/L (98-107) Carbon Dioxide Level 22mmol/L (21-32) Anion Gap 10 (6-14) Blood Urea Nitrogen 10mg/dL (7-20) Creatinine 0.7mg/dL (0.6-1.0) Estimated GFR (Cockcroft-Gault) 79.3 Glucose Level 127mg/dL (70-99) Calcium Level 8.6mg/dL (8.5-10.1) Test 01/06/17 07:37 Glucose (Fingerstick) 121mg/dL (70-99) Problem List Problems Medical Problems: (1) Ventral incisional hernia Status: Acute Assessment/Plan POD 1 repair VIH PT/OT Problems: JUAN ANTONIO ALEJANDRA MD Jan 06, 2017 10:52
[2017-01-06 11:00] VITALS: BP 152/61
--- NOTE | 2017-01-06 14:26 | PATHOLOGY ---
PATHOLOGY REPORT * * * * * * * * FINAL DIAGNOSIS: Segment of focal mesothelial-lined fibromembranous and fibroadipose tissue, ventral hernia repair: - Hernia sac showing congestion and focal submesothelial reactive fibrosis. (JPM:; d/t: 01/06/17) REPORT ELECTRONICALLY SIGNED BY: Jf Richardson M.D. DATE/TIME: 01/06/2017 14:26 * * * * * * * * GROSS PATHOLOGY: Received in formalin labeled "Hussain Guzman hernia sac," is a segment of fibromembranous tissue with attached fibroadipose tissue measuring 11.2 x 7.5 x 2.2 cm. No nodules or lesions are identified. Fire Apparatus Engineer tissue is submitted in cassette A1. (CAA; 01/05/2017) INITIAL CPT CODE(S): A; 97304 Professional services performed [place] [facility] [place] [address] Technical services performed by [facility] at [address] [place] [address], [address], [place] [address]. SPECIMEN(S) RECEIVED: A.Hernia sac CLINICAL HISTORY: Ventral hernia PATIENT: HUSSAIN GUZMAN /AGE: 211/18/1930 (Age: 86) PATIENT #: [id number] ALT CASE #: SPECIMEN COLLECTION DATE: 01/05/2017 SPECIMEN RECEIVED DATE: 01/05/2017 [facility] - [address] [place] [address] - PHONE: [phone] * * * END OF REPORT * * *
[2017-01-06 15:00] VITALS: BP 169/68
[2017-01-06 19:00] VITALS: BP 147/68
[2017-01-06] MEDS: ENOXAPARIN 40 MG/0.4 ML SYRINGE. SQ SCH (21:40)
[2017-01-06 23:00] VITALS: BP 137/59
[2017-01-07 03:00] VITALS: BP 150/59
[2017-01-07] MEDS: ACETAMINOPHEN 325 MG TABLET. PO PRN (03:45)
[2017-01-07] MEDS: POTASSIUM CL 20MEQ-0.45% NACL 1,000 ML IV SCH (03:45)
[2017-01-07 05:29] LABS: BASO # 0.1 x10^3/uL (0.0-0.2); BASO % 1 % (0-3); EOS % 1 % (0-3); HEMATOCRIT 39.6 % (36.0-47.0); LYMPH # 1.3 x10^3/uL (1.0-4.8); LYMPH % 13 % (24-48); MEAN CORPUSCULAR HEMOGLOBIN 32 pg (25-35); MEAN CORPUSCULAR HGB CONC 33 g/dL (31-37); MEAN CORPUSCULAR VOLUME 98 fL (79-100); MONO % 8 % (0-9); NEUT % 77 % (31-73); PLATELET COUNT 280 x10^3/uL (140-400); RED BLOOD COUNT 4.03 x10^6/uL (3.50-5.40); RED CELL DISTRIBUTION WIDTH 13.2 % (11.5-14.5); WHITE BLOOD COUNT 9.5 x10^3/uL (4.0-11.0)
[2017-01-07 06:24] LABS: CREATININE 0.7 mg/dL (0.6-1.0); GFR 79.3; POTASSIUM 4.2 mmol/L (3.5-5.1)
[2017-01-07 07:00] VITALS: BP 127/79
[2017-01-07] MEDS: INSULIN ASPART 300 UNITS/3 ML INSULN.PEN SQ SCH ×2 (08:00→12:55)
[2017-01-07] MEDS: HYDROCODONE/APAP 5/325MG TABLET. PO PRN ×2 (09:31→15:15)
[2017-01-07] MEDS: CYANOCOBALAMIN (VITAMIN B-12) 1,000 MCG TABLET. PO SCH (09:32)
[2017-01-07] MEDS: PANTOPRAZOLE 40 MG TABLET. PO SCH (09:32)
[2017-01-07] MEDS: DOCUSATE SODIUM 100 MG CAPSULE. PO SCH (09:32)
[2017-01-07] MEDS: METOPROLOL TART IMMED RELEASE 25 MG TABLET PO SCH (09:33)
[2017-01-07] MEDS: ONDANSETRON PF 4 MG/2 ML VIAL. IV PRN ×2 (09:35→15:15)
--- NOTE | 2017-01-07 09:50 | PDOC ---
PROGRESS NOTES Chief Complaint Chief Complaint Ventral incisional hernia repair, POD DM HTN not controlled. Plan Metoprolol SSI Pain control incentive spirometry prn labs reviewed, Vitals Vitals Vital Signs Date Time Temp Pulse Resp B/P Pulse Ox O2 Delivery O2 Flow Rate FiO2 01/07/17 09:33 81 127/79 01/07/17 09:31 Room Air 01/07/17 07:00 97.5 18 93 97.5 Physical Exam General: Alert, Oriented X3, No acute distress Heart: Regular rate, Normal S1, Normal S2 Lungs: Clear Abdomen: Soft, Other (binder in place, LINDEN with small amount of serosanguineous output) Extremities: No clubbing Skin: No rashes Labs LABS Laboratory Tests Test 01/06/17 11:10 01/06/17 16:09 01/06/17 20:41 01/07/17 04:40 Glucose (Fingerstick) 115mg/dL (70-99) 125mg/dL (70-99) 144mg/dL (70-99) White Blood Count 9.5x10^3/uL (4.0-11.0) Red Blood Count 4.03x10^6/uL (3.50-5.40) Hemoglobin 13.0g/dL (12.0-15.5) Hematocrit 39.6% (36.0-47.0) Mean Corpuscular Volume 98fL (79-100) Mean Corpuscular Hemoglobin 32pg (25-35) Mean Corpuscular Hemoglobin Concent 33g/dL (31-37) Red Cell Distribution Width 13.2% (11.5-14.5) Platelet Count 280x10^3/uL (140-400) Neutrophils (%) (Auto) 77% (31-73) Lymphocytes (%) (Auto) 13% (24-48) Monocytes (%) (Auto) 8% (0-9) Eosinophils (%) (Auto) 1% (0-3) Basophils (%) (Auto) 1% (0-3) Neutrophils # (Auto) 7.3x10^3uL (1.8-7.7) Lymphocytes # (Auto) 1.3x10^3/uL (1.0-4.8) Monocytes # (Auto) 0.8x10^3/uL (0.0-1.1) Eosinophils # (Auto) 0.1x10^3/uL (0.0-0.7) Basophils # (Auto) 0.1x10^3/uL (0.0-0.2) Sodium Level 141mmol/L (136-145) Potassium Level 4.2mmol/L (3.5-5.1) Chloride Level 107mmol/L (98-107) Carbon Dioxide Level 23mmol/L (21-32) Anion Gap 11 (6-14) Blood Urea Nitrogen 10mg/dL (7-20) Creatinine 0.7mg/dL (0.6-1.0) Estimated GFR (Cockcroft-Gault) 79.3 Glucose Level 138mg/dL (70-99) Calcium Level 9.0mg/dL (8.5-10.1) Test 01/07/17 07:16 Glucose (Fingerstick) 108mg/dL (70-99) Assessment and Plan Assessmemt and Plan Problems Medical Problems: (1) Ventral incisional hernia Status: Acute Problems: Comment Review of Relevant I have reviewed the following items kelly (where applicable) has been applied. Labs Laboratory Tests Test 01/05/17 13:16 01/05/17 16:43 01/05/17 21:05 01/06/17 04:40 Glucose (Fingerstick) 187mg/dL (70-99) 163mg/dL (70-99) 177mg/dL (70-99) White Blood Count 13.0x10^3/uL (4.0-11.0) Red Blood Count 4.15x10^6/uL (3.50-5.40) Hemoglobin 13.3g/dL (12.0-15.5) Hematocrit 39.8% (36.0-47.0) Mean Corpuscular Volume 96fL (79-100) Mean Corpuscular Hemoglobin 32pg (25-35) Mean Corpuscular Hemoglobin Concent 34g/dL (31-37) Red Cell Distribution Width 13.5% (11.5-14.5) Platelet Count 285x10^3/uL (140-400) Neutrophils (%) (Auto) 81% (31-73) Lymphocytes (%) (Auto) 11% (24-48) Monocytes (%) (Auto) 7% (0-9) Eosinophils (%) (Auto) 0% (0-3) Basophils (%) (Auto) 1% (0-3) Neutrophils # (Auto) 10.6x10^3uL (1.8-7.7) Lymphocytes # (Auto) 1.4x10^3/uL (1.0-4.8) Monocytes # (Auto) 1.0x10^3/uL (0.0-1.1) Eosinophils # (Auto) 0.0x10^3/uL (0.0-0.7) Basophils # (Auto) 0.1x10^3/uL (0.0-0.2) Sodium Level 134mmol/L (136-145) Potassium Level 4.1mmol/L (3.5-5.1) Chloride Level 102mmol/L (98-107) Carbon Dioxide Level 22mmol/L (21-32) Anion Gap 10 (6-14) Blood Urea Nitrogen 10mg/dL (7-20) Creatinine 0.7mg/dL (0.6-1.0) Estimated GFR (Cockcroft-Gault) 79.3 Glucose Level 127mg/dL (70-99) Calcium Level 8.6mg/dL (8.5-10.1) Test 01/06/17 07:37 01/06/17 11:10 01/06/17 16:09 01/06/17 20:41 Glucose (Fingerstick) 121mg/dL (70-99) 115mg/dL (70-99) 125mg/dL (70-99) 144mg/dL (70-99) Test 01/07/17 04:40 01/07/17 07:16 White Blood Count 9.5x10^3/uL (4.0-11.0) Red Blood Count 4.03x10^6/uL (3.50-5.40) Hemoglobin 13.0g/dL (12.0-15.5) Hematocrit 39.6% (36.0-47.0) Mean Corpuscular Volume 98fL (79-100) Mean Corpuscular Hemoglobin 32pg (25-35) Mean Corpuscular Hemoglobin Concent 33g/dL (31-37) Red Cell Distribution Width 13.2% (11.5-14.5) Platelet Count 280x10^3/uL (140-400) Neutrophils (%) (Auto) 77% (31-73) Lymphocytes (%) (Auto) 13% (24-48) Monocytes (%) (Auto) 8% (0-9) Eosinophils (%) (Auto) 1% (0-3) Basophils (%) (Auto) 1% (0-3) Neutrophils # (Auto) 7.3x10^3uL (1.8-7.7) Lymphocytes # (Auto) 1.3x10^3/uL (1.0-4.8) Monocytes # (Auto) 0.8x10^3/uL (0.0-1.1) Eosinophils # (Auto) 0.1x10^3/uL (0.0-0.7) Basophils # (Auto) 0.1x10^3/uL (0.0-0.2) Sodium Level 141mmol/L (136-145) Potassium Level 4.2mmol/L (3.5-5.1) Chloride Level 107mmol/L (98-107) Carbon Dioxide Level 23mmol/L (21-32) Anion Gap 11 (6-14) Blood Urea Nitrogen 10mg/dL (7-20) Creatinine 0.7mg/dL (0.6-1.0) Estimated GFR (Cockcroft-Gault) 79.3 Glucose Level 138mg/dL (70-99) Calcium Level 9.0mg/dL (8.5-10.1) Glucose (Fingerstick) 108mg/dL (70-99) Laboratory Tests Test 01/06/17 11:10 01/06/17 16:09 01/06/17 20:41 01/07/17 04:40 Glucose (Fingerstick) 115mg/dL (70-99) 125mg/dL (70-99) 144mg/dL (70-99) White Blood Count 9.5x10^3/uL (4.0-11.0) Red Blood Count 4.03x10^6/uL (3.50-5.40) Hemoglobin 13.0g/dL (12.0-15.5) Hematocrit 39.6% (36.0-47.0) Mean Corpuscular Volume 98fL (79-100) Mean Corpuscular Hemoglobin 32pg (25-35) Mean Corpuscular Hemoglobin Concent 33g/dL (31-37) Red Cell Distribution Width 13.2% (11.5-14.5) Platelet Count 280x10^3/uL (140-400) Neutrophils (%) (Auto) 77% (31-73) Lymphocytes (%) (Auto) 13% (24-48) Monocytes (%) (Auto) 8% (0-9) Eosinophils (%) (Auto) 1% (0-3) Basophils (%) (Auto) 1% (0-3) Neutrophils # (Auto) 7.3x10^3uL (1.8-7.7) Lymphocytes # (Auto) 1.3x10^3/uL (1.0-4.8) Monocytes # (Auto) 0.8x10^3/uL (0.0-1.1) Eosinophils # (Auto) 0.1x10^3/uL (0.0-0.7) Basophils # (Auto) 0.1x10^3/uL (0.0-0.2) Sodium Level 141mmol/L (136-145) Potassium Level 4.2mmol/L (3.5-5.1) Chloride Level 107mmol/L (98-107) Carbon Dioxide Level 23mmol/L (21-32) Anion Gap 11 (6-14) Blood Urea Nitrogen 10mg/dL (7-20) Creatinine 0.7mg/dL (0.6-1.0) Estimated GFR (Cockcroft-Gault) 79.3 Glucose Level 138mg/dL (70-99) Calcium Level 9.0mg/dL (8.5-10.1) Test 01/07/17 07:16 Glucose (Fingerstick) 108mg/dL (70-99) Medications Current Medications Ondansetron HCl (Zofran) 4 mg PRN Q6HRS PRN IV Nausea Last administered on 01/05 15:00; Start 01/05/17 at 07:00; Stop 01/06/17 at 06:59; Status DC Fentanyl Citrate (Fentanyl 2ml Vial) 25 mcg PRN Q5MIN PRN IV MILD PAIN Last administered on 01/05/17 17:02; Start 01/05/17 at 07:00; Stop 01/06/17 at 06:59 ; Status DC Fentanyl Citrate 50 mcg 50 mcg PRN Q5MIN PRN IV MODERATE PAIN Last administered on 01/05/17 12:47; Start 01/05/17 at 07:00; Stop 01/06/17 at 06:59 ; Status DC Lactated Ringer's (Iv Lactated Ringers) 1,000 ml @ 0 mls/hr Q0M IV Last administered on 01/05/17 12:19; Start 01/05/17 at 07:00; Stop 01/05/17 at 18:59 ; Status DC Lidocaine HCl 2 ml 1X PRN PRN ID IV START; Start 01/05/17 at 07:00; Stop at 06:59; Status DC Prochlorperazine Edisylate 5 mg 5 mg PACU PRN PRN IV NAUSEA; Start 01/05/17 at 07:00; Stop 01/06/17 at 06:59; Status DC Cefazolin Sodium/ Dextrose (Ancef 2gm Premix) 50 ml @ 100 mls/hr 1X ONCE IV Last administered on 01/05/17 09:42; Start 01/05/17 at 06:00; Stop 01/05/17 at 06:29; Status DC Bupivacaine HCl/ Epinephrine Bitart (Sensorcain-Mpf Epi 0.5%-1:[id number]) 30 ml STK -MED ONCE .ROUTE Last administered on 01/05/17 09:52; Start 01/05/17 at 07:23 ; Stop 01/05/17 at 07:24; Status DC Dexamethasone Sodium Phosphate (Decadron) 20 mg STK-MED ONCE .ROUTE ; Start at 08:18; Stop 01/05/17 at 08:19; Status DC Ondansetron HCl 4 mg 4 mg STK-MED ONCE .ROUTE ; Start 01/05/17 at 08:18; Stop at 08:19; Status DC Propofol (Diprivan) 20 ml @ As Directed STK-MED ONCE IV ; Start 01/05/17 at 08: 18; Stop 01/05/17 at 08:19; Status DC Neostigmine Methylsulfate 5 mg STK-MED ONCE .ROUTE ; Start 01/05/17 at 08:18; Stop 01/05/17 at 08:19; Status DC Midazolam HCl (Versed) 2 mg STK-MED ONCE .ROUTE ; Start 01/05/17 at 08:18; Stop 01/05/17 at 08:19; Status DC Fentanyl Citrate (Fentanyl 5ml Vial) 250 mcg STK-MED ONCE .ROUTE ; Start at 08:19; Stop 01/05/17 at 08:20; Status DC Glycopyrrolate (Robinul) 1 mg STK-MED ONCE .ROUTE ; Start 01/05/17 at 08:19; Stop 01/05/17 at 08:20; Status DC Rocuronium [place] (Zemuron) 100 mg STK-MED ONCE .ROUTE ; Start 01/05/17 at 08: 20; Stop 01/05/17 at 08:21; Status DC Phenylephrine HCl 1 mg STK-MED ONCE IV ; Start 01/05/17 at 09:48; Stop 01/05/17 at 09:49; Status DC Ketorolac Tromethamine (Toradol) 15 mg 1X ONCE IV Last administered on 11:09; Start 01/05/17 at 12:00; Stop 01/05/17 at 12:01; Status DC Enoxaparin Sodium (Lovenox 40mg Syringe) 40 mg Q24H SQ Last administered on 21:40; Start 01/05/17 at 21:00 Sodium Chloride 3 ml 3 ml QSHIFT PRN IV AFTER MEDS AND BLOOD DRAWS; Start 01/05 at 11:15 Potassium Chloride/Sodium Chloride (KCl 20 Meq-0.45% Nacl) 1,000 ml @ 80 mls/ hr [id number] IV Last administered on 01/07/17 03:45; Start 01/05/17 at 12:00 Acetaminophen/ Hydrocodone Bitart (Lortab 5/325) 1 tab PRN Q4HRS PRN PO MILD PAIN Last administered on 01/07/17 09:31; Start 01/05/17 at 11:15 Acetaminophen/ Hydrocodone Bitart (Lortab 5/325) 2 tab PRN Q4HRS PRN PO MODERATE PAIN, SEVERE PAIN; Start 01/05/17 at 11:15 Hydromorphone HCl (Dilaudid) 0.5 mg PRN Q3HRS PRN IV PAIN; Start 01/05/17 at 11 :15 Docusate Sodium (Colace) 100 mg BID PO ; Start 01/05/17 at 21:00; Stop 01/05/17 at 21:00; Status DC Ondansetron HCl (Zofran) 4 mg PRN Q6HRS PRN IV NAUESA, 1ST CHOICE Last administered on 01/07/17 09:35; Start 01/05/17 at 11:15 Diphenhydramine HCl (Benadryl) 25 mg PRN Q6HRS PRN PO ITCHING; Start 01/05/17 at 11:15 Cyanocobalamin (Vitamin B-12) 1,000 mcg DAILY PO Last administered on 09:32; Start 01/05/17 at 13:00 Pantoprazole Sodium (Protonix) 40 mg DAILYAC PO Last administered on 01/07/17 09:32; Start 01/05/17 at 13:00 Morphine Sulfate 2 mg STK-MED ONCE .ROUTE ; Start 01/05/17 at 12:15; Stop at 12:16; Status DC Docusate Sodium (Colace) 100 mg BID PO Last administered on 01/07/17 09:32; Start 01/05/17 at 21:00 Acetaminophen (Tylenol) 325 mg PRN Q6HRS PRN PO MILD PAIN / TEMP Last administered on 01/07/17 03:45; Start 01/05/17 at 16:15 Hydralazine HCl (Apresoline) 10 mg PRN Q4HRS PRN IVP ELEVATED BP, SEE COMMENTS ; Start 01/05/17 at 16:15 Ondansetron HCl (Zofran) 4 mg PRN Q8HRS PRN IV NAUSEA/VOMITING; Start 01/05/17 at 16:15; Stop 01/06/17 at 12:35; Status DC Albuterol Sulfate (Ventolin Neb Soln) 2.5 mg PRN Q4HRS PRN NEB SHORTNESS OF BREATH; Start 01/05/17 at 16:15 Insulin Aspart (Novolog) 0-7 UNITS TIDWMEALS SQ ; Start 01/05/17 at 17:00 Dextrose 12.5 gm PRN Q15MIN PRN IV SEE COMMENTS; Start 01/05/17 at 16:15 Metoprolol Tartrate (Lopressor) 12.5 mg BID PO Last administered on 01/07/17t 09:33; Start 01/06/17 at 09:00 Active Scripts Active Reported Vitamin B-12 (Cyanocobalamin (Vitamin B-12)) 1,000 Mcg Tablet 1 Tab PO DAILY Prevacid (Lansoprazole) 30 Mg Capsule. 1 Cap PO DAILY Vitals/I & O Vital Sign - Last 24 Hours 01/06/17 01/06/17 01/06/17 01/06/17 11:00 15:00 19:00 20:00 Temp 98.2 98.0 98.6 98.2 98.0 98.6 Pulse 79 76 82 Resp 18 18 18 B/P 152/61 169/68 147/68 Pulse Ox 93 94 92 O2 Delivery Room Air Room Air Room Air Room Air 01/06/17 01/06/17 01/07/17 01/07/17 21:40 23:00 03:00 07:00 Temp 98.8 97.9 97.5 98.8 97.9 97.5 Pulse 82 77 79 81 Resp 18 18 18 B/P 147/68 137/59 150/59 127/79 Pulse Ox 91 94 93 O2 Delivery Room Air Room Air Room Air 01/07/17 01/07/17 09:31 09:33 Pulse 81 B/P 127/79 O2 Delivery Room Air Intake and Output 01/06/17 01/06/17 01/07/17 15:00 23:00 07:00 Intake Total 2366 ml 300 ml Output Total 1880 ml 1950 ml Balance 486 ml -1650 ml TERRIE HIDALGO MD Jan 07, 2017 09:50
[2017-01-07 11:00] VITALS: BP 132/51
--- NOTE | 2017-01-07 13:19 | PDOC3 ---
Discharge Summary* Date of Admission: Jan 05, 2017 Date of Discharge: Jan 07, 2017 Admitting Diagnosis Problems Medical Problems: (1) Ventral incisional hernia Status: Acute Final Diagnosis Problems Medical Problems: (1) Ventral incisional hernia Status: Acute CONSULTS IPC Procedures repair with mesh Brief Hospital Course Ms. Guzman is a 86 old female who presented with an incisional hernia. It was repaired with mesh. She did well post op and went home on her second post op day Disposition/Orders: D/C to Home CONDITION AT DISCHARGE: Stable Diet: Regular Scheduled Cyanocobalamin (Vitamin B-12) (Vitamin B-12) 1 TAB PO DAILY (Reported) Lansoprazole (Prevacid) 1 CAP PO DAILY (Reported) FOLLOW UP APPOINTMENT: next week with [facility] Time Spent Total time spent with patient 10 minutes for coordination of care, counseling, and education. JUAN ANTONIO ALEJANDRA MD Jan 07, 2017 13:19
[2017-01-07] MEDS ORDERED: MINERAL OIL 133 ML ENEMA. PR ONE (13:30)
[2017-01-07 15:00] VITALS: BP 134/66
== END 2017-01-07 17:19 | disposition home or self-care (01) | DRG 355 ==
LOC: SURG 08:18 → 4 NORTH 11:20
PROVIDERS: ADMIT Surgery; ATTEND Surgery
PROC: 0WUF0JZ Supplement Abdominal Wall with Synthetic Substitute, Open Approach (ICD-10-PCS; principal; 2017-01-05 10:00)
DX: K43.2 Incisional hernia without obstruction or gangrene (principal); I10 Essential (primary) hypertension; E11.9 Type 2 diabetes mellitus without complications; Z88.5 Allergy status to narcotic agent; Z91.013 Allergy to seafood
CPT/HCPCS: 36415; 80048; 82947; 85027; 88302; 94250; C1769; C1781; J0690; J1100; J1650; J1815; J1885; J2250; J2370; J2405; J2704; J2710; J3010; J3490; J7120

== ENCOUNTER → 2017-05-12 | Outpatient (CLI) | payer MEDICARE, OTHER ==
[~2017-05-12] MED LIST changes: -BUPIVAC MPF-EPI 0.5%-1:200000 30 ML VIAL. ONE; -CEFAZOLIN 2GM PREMIX 50 ML IV ONE; -DEXAMETHASONE SOD PHOS 20 MG/5 ML VIAL. ONE; -FENTANYL PF 100 MCG/2 ML VIAL. IV PRN; +IOHEXOL 240 MG/ML 50ML VIAL. PO ONE; +IOHEXOL 300 MG/ML 75 ML VIAL IV ONE; -LANS30CA17 PO; +LANS30CA66 PO; -LIDOCAINE 1% 1 ML SYRINGE. ID PRN; -MIDAZOLAM HCL 2 MG/2 ML VIAL. ONE; -NEOSTIGMINE METHYLSULFATE 5 MG/5 ML SYRINGE. ONE; -ONDANSETRON PF 4 MG/2 ML VIAL. IV PRN; -ONDANSETRON PF 4 MG/2 ML VIAL. ONE; -PROCHLORPERAZINE 10 MG/2 ML VIAL. IV PRN; -PROPOFOL 20 ML IV ONE
--- NOTE | 2017-05-12 10:16 | RAD ---
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 Comparison: CT chest abdomen and pelvis 08/20/2015, CT chest July 03, 2014. Technique: CT helical acquisition of the chest, abdomen and pelvis following uneventful intravenous administration of 75 mL Omnipaque 300. Coronal and sagittal reformations were obtained. PQRS Compliance Statement: One or more of the following individualized dose reduction techniques were utilized for this examination: 1. Automated exposure control 2. Adjustment of the mA and/or kV according to patient size 3. Use of iterative reconstruction technique Findings: Chest: Heart size is normal without significant pericardial effusion. Coronary artery calcifications are noted. The thoracic aorta is normal in caliber with moderate calcified atheromatous disease. No axillary, mediastinal or hilar lymphadenopathy. There is stable mediastinal and hilar calcified lymph nodes. There are few hypodense nodules in the right lobe of the thyroid measuring less than 1 cm. The central airways are patent. Stable areas of minor pleural-parenchymal scarring in both lungs. No suspicious noncalcified pulmonary nodules. No pleural effusion or pneumothorax. There are old lateral right rib fracture deformities. There is partial ankylosis anteriorly from T5-T8. Stable chronic anterior superior superior endplate T10 compression deformity with no retropulsion. Abdomen and pelvis: Liver normal in size without suspicious focal lesion. Layering cholelithiasis. No intra or extrahepatic biliary ductal dilatation. Multiple punctate calcified splenic granulomas. Spleen is normal in size. Adrenal glands and pancreas are within normal limits. There are 2 right renal cysts and additional bilateral renal hypodensities which are too small to definitively characterize. Abdominal aorta is normal in caliber with mild calcified atheromatous disease. Major portal, splenic and visualized upper spelled mesenteric veins are widely patent. There is a large hiatal hernia. Prior right hemicolectomy with no discrete soft tissue mass at the anastomosis. There is moderate pancolonic diverticulosis of the residual colon. Peripherally calcified fatty lesion at the left lower quadrant sigmoid mesial colon compatible with fat necrosis from prior epiploic appendage ages. No retroperitoneal or mesenteric lymphadenopathy. No abdominal free fluid. Moderately distended unopacified urinary bladder demonstrates few punctate foci of gas in the nondependent bladder. Uterus is present. No iliac or inguinal lymphadenopathy. No pelvic free fluid. Prior ventral hernia repair with mesh some ill-defined soft tissue stranding in the deep subcutaneous tissues at the midline superior to the umbilicus, likely scarring and fat necrosis. Stable 6 mm anterolisthesis L4 on L5. No destructive osseous lesions. Impression: Chest: 1. No evidence of thoracic metastatic disease. 2. Coronary artery calcifications. Abdomen and pelvis: 1. Prior right hemicolectomy without evidence of local recurrence or abdominopelvic metastatic disease. 2. Few tiny foci of gas in the urinary bladder which may be due to wire instrumentation. Clinical correlation is recommended. 3. Cholelithiasis.
== END | disposition home or self-care (01) ==
LOC: CT 06:58
PROVIDERS: ATTEND Internal Medicine Hematology & Oncology
DX: C18.2 Malignant neoplasm of ascending colon (principal); I25.10 Atherosclerotic heart disease of native coronary artery without angina pectoris
CPT/HCPCS: 71260; 74177; Q9966; Q9967

== ENCOUNTER → 2018-05-27 | Outpatient (CLI) | payer MEDICARE, OTHER ==
[~2018-05-27] MED LIST changes: +CONTRAST GIVEN. MC PRN; +IOHEXOL 300 MG/ML 100ML VIAL. IV ONE; -IOHEXOL 300 MG/ML 75 ML VIAL IV ONE
--- NOTE | 2018-05-27 11:17 | RAD ---
CLINICAL HISTORY: Colon and lung cancer, follow-up COMPARISON: Comparison 05/12/2017, 08/20/2015 TECHNIQUE: CT of the chest, abdomen and pelvis following the administration of oral and 75 mL of Omnipaque 300 nonionic intravenous contrast material. Axial, coronal and sagittal reformatted images were generated. FINDINGS: Chest: The heart is mildly enlarged. No pericardial effusion. Moderate hiatal hernia. No mediastinal or hilar lymphadenopathy. No axillary lymphadenopathy. No pleural effusion or pneumothorax. Focal nodular opacity in the medial right lung base is unchanged to 08/20/2015, possibly focal scarring/atelectasis. No suspicious lung nodule or mass is identified. Abdomen/pelvis: No focal liver lesion. Calcified gallstones are seen layering dependently within the gallbladder. No intra or extrahepatic biliary ductal dilatation. Calcified granulomas are seen within the spleen. Pancreas is mildly atrophic although otherwise unremarkable. Adrenal glands are normal. Symmetric nephrograms. Hypodense right renal lesions are grossly stable. No hydronephrosis. No abdominal lymphadenopathy. No pelvic lymphadenopathy. No abdominal or pelvic ascites. Moderate colonic stool content. Partial right colectomy changes are seen. Colonic diverticulosis. Negative acute diverticulitis. No abnormal small or large bowel mass effect. No pelvic mass. The endometrium is thick measuring 8 mm. Multilevel degenerative changes of the spine are seen with flowing bridging anterior endplates within the mid thoracic spine. No definite aggressive osseous lesion is seen. IMPRESSION: 1. No evidence of thoracic, abdominal or pelvic lymphadenopathy. No definite evidence for metastatic disease. 2. Hiatal hernia. 3. Borderline thickening of the endometrium measuring up to 8 mm. This can be further assessed by ultrasound if clinically indicated. Electronically signed by: Yovani Dalton MD (05/27/2018 11:13 AM) [facility]
== END | disposition home or self-care (01) ==
LOC: CT 08:12
PROVIDERS: ATTEND Internal Medicine Hematology & Oncology
DX: C18.2 Malignant neoplasm of ascending colon (principal); K44.9 Diaphragmatic hernia without obstruction or gangrene
CPT/HCPCS: 71260; 74177; Q9966; Q9967

== ENCOUNTER → 2019-05-23 | Outpatient (CLI) | payer MEDICARE, OTHER ==
[~2019-05-23] MED LIST changes: +CYAN-25 PO; -CYAN10005 PO; +HYDR-3164 PO; -HYDR-971 PO
--- NOTE | 2019-05-23 11:35 | RAD ---
EXAM: CT Chest, Abdomen and Pelvis with IV contrast CLINICAL HISTORY: Colon cancer, lung cancer COMPARISON: 05/27/2018, 05/12/17 TECHNIQUE: Helical CT of the chest, abdomen and pelvis was performed following the administration of intravenous contrast. Axial, coronal and sagittal reformatted images were generated. ---PQRS compliance statement - One or more of the following individualized dose reduction techniques were utilized for this study: 1. Automated exposure control 2. Adjustment of the mA and/or kV according to patient size 3. Use of iterative reconstruction technique--- FINDINGS: Chest: The heart is not enlarged. No pericardial effusion. Prominence of pulmonary arterial trunk may be seen with pulmonary arterial hypertension. There is superimposed focal dilatation of the pulmonary arterial trunk just proximal to the branch point. Moderate hiatal hernia. No pleural effusion or pneumothorax. Linear opacities in the lower lobes likely scarring/atelectasis. Mild biapical pleural/parenchymal scarring/thickening is also seen. Focal nodularity of the medial right lung base is stable. No mediastinal or hilar lymphadenopathy. No axillary lymphadenopathy. Abdomen and Pelvis: Diffuse hepatic hypoattenuation may be seen with hepatic steatosis. Calcified gallstones are seen dependently within the gallbladder. No focal liver lesion. No biliary ductal dilatation. Pancreas is unremarkable. Calcified granulomas are seen within the spleen. Adrenal glands are normal. Symmetric nephrograms. Bilateral hypodense renal lesions are seen, grossly stable in size likely cystic. No hydronephrosis or hydroureter. Mild bladder wall thickening may be seen with cystitis. Small focus of gas is seen within the bladder. Colonic diverticulosis without evidence for acute diverticulitis. No evidence of bowel obstruction. No definite pelvic mass is seen. No abdominal or pelvic lymphadenopathy. Dense atherosclerotic calcifications of aorta are seen. Bones: Changes of spine are seen. No definite aggressive osseous lesion. IMPRESSION: 1. No thoracic, abdominal or pelvic lymphadenopathy. 2. Diverticulosis without evidence for acute diverticulitis. 3. Calcified gallstones are seen without CT findings for acute cholecystitis. 4. Mild bladder wall thickening may be seen with cystitis. Small focus of gas is seen within the bladder. 5. No suspicious lung nodule or mass is seen. 6. Stable hiatal hernia. Electronically signed by: Yovani Dalton MD (05/23/2019 11:33 AM) [facility]
== END | disposition home or self-care (01) ==
LOC: CT 15:31
PROVIDERS: ATTEND Internal Medicine Hematology & Oncology
DX: C18.2 Malignant neoplasm of ascending colon (principal); K44.9 Diaphragmatic hernia without obstruction or gangrene; J98.4 Other disorders of lung; K80.20 Calculus of gallbladder without cholecystitis without obstruction; J84.10 Pulmonary fibrosis, unspecified; K57.30 Diverticulosis of large intestine without perforation or abscess without bleeding; I70.0 Atherosclerosis of aorta; Z91.048 Other nonmedicinal substance allergy status; Z88.8 Allergy status to other drugs, medicaments and biological substances
CPT/HCPCS: 71260; 74177; Q9966; Q9967